=== PATIENT | male | born 1945 | race Caucasian/White ===

== ENCOUNTER 2016-10-26 13:18 | Emergency (ER) | payer MEDICARE ==
[~2016-10-26] VITALS: Ht 198.1 cm; Wt 118.2 kg
[~2016-10-26 13:18] MED LIST: ATOR20TA PO; DABI150C PO; DOFE0.25 PO; DOXY100C43 PO; HYDR-4003 PO; LISI-567 PO; METO25TA6 PO; SERT25TA6 PO; SILD100T PO
[2016-10-26 13:19] VITALS: BP 166/79; PULSE 83; RESP 14; O2SAT 97
--- NOTE | 2016-10-26 13:33 | ED.REPORT ---
HPI-General Illness Date of Service Oct 26, 2016 ED Provider: Tremayne Reyna MD The patient is a 71 year old male with a history of AICD on Pradaxa presenting to the ED complaining of left knee pain after syncopating and falling to the ground while getting out of the car last night. The patient claims he has had a few episodes of passing out over the past 2 weeks, all of which involved him standing too quickly. The patient reports that he also has left ankle pain and trouble walking secondary to pain. He denies hitting his head, headache, lightheadedness, dizziness, vomiting, or any other symptoms. He has a cardiology appointment tomorrow for follow up for his recent syncopal episodes. For this reason, he declines a syncope work up at this time. Nursing Notes Stated Complaint: LEFT KNEE PAIN Chief Complaint: Extremity Trauma Nursing Notes Reviewed: Yes Allergies: Coded Allergies: No Known Drug Allergies (Verified Allergy, Unknown, 06/23/15) Scheduled Atorvastatin (Lipitor) 20 Mg Tablet 20 MG PO DAILY Dabigatran Etexilate Mesylate (Pradaxa) 150 Mg Capsule 150 MG PO BID Dofetilide (Tikosyn) 250 Mcg Capsule 250 MCG PO BID Doxycycline Monohyd (Doxycycline Monohyd) 100 Mg Capsule 100 MG PO DAILY Lisinopril (Lisinopril) 20 Mg Tablet 20 MG PO DAILY Metoprolol Tartrate (Metoprolol Tartrate) 25 Mg Tablet 25 MG PO BID Sertraline HCl (Sertraline) 25 Mg Tablet 25 MG PO DAILY Scheduled PRN Hydrocodone-Acetaminophen 5-325 mg (Hydrocodone-Acetaminophen 5-325 mg) 1 Each Tablet 1 TABLET PO Q6H PRN PRN For Pain Sildenafil Citrate (Viagra) 100 Mg Tablet 100 MG PO UD PRN PRN ERECTILE DYSFUNCTION General Time Seen by MD: 13:32 Chief Complaint Other (left knee pain) Hx Obtained From: Patient Arrived By: Walk-in Sudden in Onset?: Yes Onset Occurred: Yesterday Symptom Duration: Since onset Caused by: Fall on ground Location: : Knee left Quality: Painful Associated with: Reports: Pain on walking, Syncope Pertinent Negative: Pt denies other symptoms Exacerbated by: Moving affected area, Standing up Past Medical History Past Medical History Pacemaker/ AICD Past Surgical History cardiac Ablation Knee surgery Broken arms arm fx repair Reports: Pacemaker insertion (AICD placement ) Smoking History Unknown if Ever Smoker Social History Alcohol Use: 1-3 per day Ambulatory Status Independent Review of Systems Full Review of Systems GI: Denies: Vomiting Musculoskeletal: Reports: Joint pain (left knee and left ankle) Neurologic: Reports: Problem walking, Syncope, Denies: Dizziness, Headache, Lightheaded Complete sys rev & neg: except as marked. Physical Exam Vital Signs Vital Signs Date Time Temp Pulse Resp B/P Pulse Ox O2 Delivery O2 Flow Rate FiO2 10/26/16 14:26 36.7 83 14 166/79 97 Room Air 10/26/16 13:19 36.7 83 14 166/79 97 Room Air Initial VS: Reviewed, Vital signs normal Head / Eyes: Atraumatic, Normocephalic Neck: Supple, Full range of motion Respiratory: No respiratory distress Skin: Warm, Dry Neurologic: Alert, Oriented Psychiatric: Mood/affect normal General/Constitutional: Awake, Alert, No acute distress, Well developed, Well nourished Upper Extremities Upper Extremity / MS: Atraumatic Lower Extremity / Pelvis / MS: Atraumatic, Neurologic intact, Vascular intact Left Knee: Positive: Joint effusion present (mild effusion) Barbara's test negative left knee Josesito's test negative left knee abrasion of left anterior knee No bony tenderness Interpretation & Diagnostics X-Ray Interpretation Xray Interpretation: IMPRESSION: 1. No acute fracture or subluxation. 2. Small corticated ossicle lateral to the patella may represent sequelae of a prior avulsion injury. Dictated by: Sang Ortiz M.D. on 10/26/2016 at 13:59 Approved by: Sang Ortiz M.D. on 10/26/2016 at 14:01 X-Ray Ordered: Knee left Interpretation / Wet Read by: Interpret - Radiologist Re-Eval/Medical Decision Med Decision/Clinical Course 71-year-old male presenting status post syncopal event last night and fall onto his left knee. Complaining of knee pain. Exam neg barbara's/josesito's. Requesting x-ray of his left knee. He does not want any syncopal workup. He refuses CT, EKG, labs. Only accepts x-ray of his left knee. There is no evidence of acute fracture. There is no evidence of possible old avulsion injury. He will continue his knee brace and cane. Declines any crutches. Rice. He will follow up with his primary doctor in several days. Return precautions given. Time of Eval: 14:08 Re-Evaluation/Progress Note: Rechecked patient. Discussed x ray results and plan to discharge with follow up instructions. Patient understands and agrees with plan. All questions addressed at this time. Counseled Regarding: Diagnosis, Lab results, Need for follow-up, When/why to return to ED Discharge & Departure Primary Impression: Avulsion of left patellar tendon Additional Impressions: Knee pain Laterality: left Chronicity: acute Qualified Code: M25.562 - Pain in left knee Knee injury Disposition: Home Discharge Condition All VS Reviewed: Yes Condition: Stable Patient Instructions: Knee Pain (ED) Additional Instructions: Thank you for entrusting us with your care. You declined a work-up for your recent syncopal episodes. Your X-ray reveals a patellar avulsion fracture which may be old or new. Bear weight as tolerated. Continue to wear your knee brace for stability. Take Ibuprofen (up to 800mg every 8 hours). Use ice (20 minutes at a time 3 times a day) and rest to relieve your symptoms. Follow up with your x ray nurse at your appointment tomorrow. Call ortho via the number provided. Return to the emergency department if you experience numbness, weakness, increasing pain, another syncopal event, or any other new or concerning symptoms. Referrals: Phillip Greene MD (PCP) Evan Braga MD Attestation Portions of this note were transcribed by Pam Marquez and Thomas Thomas. I, Dr. Reyna personally performed the history, physical exam and medical decision-making; I reviewed and confirmed the accuracy of the information in the transcribed note. Signed by: Madeline Carbone, 10/26/2016 copies to: Phillip Greene MD; Evan Braga MD, Ben M MD Oct 26, 2016 13:33 Oct 26, 2016 13:46 PAM MARQUEZ Oct 26, 2016 14:21 Oct 26, 2016 13:46 PAM MARQUEZ Oct 26, 2016 14:21
--- NOTE | 2016-10-26 14:03 | DRSVH ---
PROCEDURE: X-RAY LEFT KNEE, THREE VIEWS ([id number]) INDICATIONS: trauma TECHNIQUE: 3 views of the knee were acquired. COMPARISON: None. FINDINGS: Bones: No acute fractures or dislocations. There is a small corticated ossicle adjacent to the late ral aspect of the patella which may represent a prior avulsion injury. There is mild lateral tilt of the patella. Soft tissues: No joint effusion. No suspicious soft tissue calcifications. IMPRESSION: 1. No acute fracture or subluxation. 2. Small corticated ossicle lateral to the patella may represent sequelae of a prior avulsion injury . Dictated by: Sang Ortiz M.D. on 10/26/2016 at 13:59 Approved by: Sang Ortiz M.D. on 10/26/2016 at 14:01
[2016-10-26 14:26] VITALS: BP 166/79; PULSE 83; RESP 14; O2SAT 97
== END 2016-10-26 14:26 | disposition home or self-care (01) ==
LOC: SED 13:18
DX: S86.912A Strain of unspecified muscle(s) and tendon(s) at lower leg level, left leg, initial encounter (principal); W17.89XA Other fall from one level to another, initial encounter; Y93.89 Activity, other specified; Y92.89 Other specified places as the place of occurrence of the external cause; Y99.8 Other external cause status; M25.572 Pain in left ankle and joints of left foot; R26.2 Difficulty in walking, not elsewhere classified; R55 Syncope and collapse; Z95.810 Presence of automatic (implantable) cardiac defibrillator; Z98.890 Other specified postprocedural states